=== PATIENT | female | born 1940 | race Caucasian/White ===

== ENCOUNTER 2017-03-08 07:57 | Day surgery (SDC) | payer MEDICARE ==
[2017-03-08] VITALS (13 sets, daily range): BP systolic 129–190; BP diastolic 52–74; PULSE 43–92; RESP 16–22; TEMP 97.8–98.7; O2SAT 93–98
[~2017-03-08] VITALS: Ht 160 cm; Wt 65.1 kg
[2017-03-08] MEDS ORDERED: IOHEXOL 350 MG/ML 100 ML BTL (for Cath Lab) OTHER ONE (07:58)
[2017-03-08] MEDS ORDERED: METO25TA3 PO (08:26)
[2017-03-08] MEDS ORDERED: ENAL10TA PO (08:26)
[2017-03-08] MEDS ORDERED: ASPI-516 CHEW (08:26)
[2017-03-08] MEDS ORDERED: ATOR10TA15 PO (08:26)
[2017-03-08 08:41] LABS: AUTOMATED NEUTROPHIL # 3.9 TH/MM3 (1.8-7.7); BASOPHIL % 0.7 % (0.0-2.0); EOSINOPHIL # 0.1 TH/MM3 (0-0.4); EOSINOPHIL % 1.1 % (0.0-4.0); HEMATOCRIT 43.2 % (35.0-46.0); HEMOGLOBIN 14.5 GM/DL (11.6-15.3); LYMPHOCYTE # 2.2 TH/MM3 (1.0-4.8); MEAN CELL VOLUME 97.6 FL (80.0-100.0); MEAN CORPUSCULAR HEMOGLOBIN 32.8 PG (27.0-34.0); MEAN CORPUSCULAR HGB CONC 33.6 % (32.0-36.0); MEAN PLATELET VOLUME 10.1 FL (7.0-11.0); MONO % 10.4 % (0.0-8.0); MONOCYTE # 0.7 TH/MM3 (0-0.9); NEUT % 55.8 % (16.0-70.0); PLATELET COUNT 193 TH/MM3 (150-450); RED BLOOD COUNT 4.42 MIL/MM3 (4.00-5.30)
[2017-03-08 08:53] LABS: PROTHROMBIN TIME - PATIENT 10.2 SEC (9.8-11.6)
[2017-03-08 09:05] LABS: BICARBONATE 29.1 MEQ/L (21.0-32.0); CALCIUM 9.7 MG/DL (8.5-10.1); CREATININE 0.68 MG/DL (0.50-1.00)
[2017-03-08] MEDS ORDERED: HEPARIN SODIUM - IV 10,000 UNITS/10 ML VIAL ONE (09:32)
[2017-03-08] MEDS ORDERED: MIDAZOLAM HCL 2 MG/2 ML VIAL ONE (09:32)
[2017-03-08] MEDS ORDERED: VERAPAMIL HCL 5 MG/2 ML VIAL ONE (09:32)
[2017-03-08] MEDS ORDERED: NITROGLYCERIN INJ 5 ML ONE (09:32)
[2017-03-08] MEDS ORDERED: HEPARIN-NS/PF INJ 1,000 ML ONE (09:34)
[2017-03-08] MEDS ORDERED: hydrALAZINE HCL 20 MG/ML VIAL ONE (10:36)
[2017-03-08] MEDS ORDERED: TICAGRELOR 90 MG TAB PO ONE (11:51)
[2017-03-08] MEDS ORDERED: SODIUM CHLOR 0.9% 1000 ML INJ 1,000 ML IV SCH (12:04)
--- NOTE | 2017-03-08 12:05 | CATHPROC ---
[employer] HIS Report Study Information Study Number Admission Scheduled Start Study Start [id number] Mar 08 2017 7:57AM 03/08/2017 Mar 08 2017 9:25AM [facility] Cardiac Catheterization Admit Source Facility Department Other [facility] - Clerk Operator Physician and Clinical Staff Initial MD Grewal, Nhan Maintainer Operator Lay Smith,RN Other cathlab, cathlab Recorder Braden James RCIS(BS) Scrub Lay Hylton,RT(R) Procedures Performed Procedure Location (Site) Vessel Name Coronary Angiograms LCA Left Coronary Coronary Angiograms RCA Right Coronary Drug Eluting Inflatio OM3 Mid CIRC L Heart Cath PTCA OM3 Mid CIRC Wire insertion Fem Art (right) Femoral Art Wire insertion OM1 Mid CIRC Wire insertion Radial (right) Radial Art. Equipment Time Cup Trimming Machine Operator Description Size Mfg Part Number Used/Scraped [id number] 10:44 [employer] WIRE, ASAWUT FIELDER XT 300CM 300CM Used *[id number] WIRE, BALANCE MIDDLEWEIGHT [id number] 10:19 [employer] 190CM Used 190CM *[id number] WIRE, BALANCE MIDDLEWEIGHT [id number] 10:52 [employer] 300CM Used 300CM *[id number] TRANSDUCER, TRUWAVE [id number] 09:25 CUADRA DOE * Used W/STOCKCOCK *[id number] [id number] *[id number] [id number] *[id number] WIRE, CHOICE PT 300CM PT EX. [id number] 11:14 Meditech 300CM Used SUPP *[id number] 09:25 Global [employer] PACK, CCL CUSTOM * Used *[id number] 09:25 Global [employer] SUPPORT, ARTERIAL ADULT [id number] *[id number] Used BALLOON, 1.25 X 15MM [id number] 10:45 MEDTRONIC 15MM Used SPRINTER LEGEND OTW *[id number] 10:27 [employer] BALLOON, 2.0 X 10MM EUPHORA 10MM Used *[id number] BALLOON, 2.25 X 8MM NC [id number] 10:36 [employer] 8MM Used EUPHORA *[id number] [id number] 10:30 [employer] STENT, 2.25 12MM STARR 2.25 12MM Used *[id number] 10:19 [employer]/AVE EBU 3.5 Z2 GUIDE CATHETER FR 6 Used *[id number] [id number] 10:32 [employer] 30 KYLE INDEFLATOR Used *6502465 BAND, RADIAL COMPRESSION TR [id number] 11:50 [employer] 24CM Used SHORT 24 *[id number] BAND, RADIAL COMPRESSION TR [id number] 11:50 [employer] 24CM Used SHORT 24 *[id number] [id number] 09:25 [employer] WIRE, EXCHANGE 260CM 3MMJ 260CM Used *[id number] 09:25 NAMIC MANIFOLD, 4 PORT * Used *[id number] 09:25 [employer]COMED OMNIPAQUE, 350 MG, 150ML 150ML [id number] Used [id number] 09:25 [facility] BLANKET,WARM AIR CCL * Used *[id number] SHEATH, FR6 TRANSRADIAL [id number] 09:25 [employer]29 FR 6 Used SLENDER 10CM *[id number] WIRE, RUNTHROUGH NS FLOPPY [id number] 10:59 [employer] 300CM Used .014 300CM *[id number] Equipment Model, Serial, Lot Number and Expiration Data Description Model Number Serial Number Lot Number Expiration Date BALLOON, 1.25 X 15MM SPRINTER [id number] 05-17-2019 LEGEND OTW BALLOON, 2.25 X 8MM NC [id number] 09-22-2018 EUPHORA BAND, RADIAL COMPRESSION TR [id number] 11-04-2019 SHORT 24 STENT, 2.25 12MM STARR [id number] 10-17-2018 WIRE, CHOICE PT 300CM PT EX. [id number] 11-30-2018 SUPP History: Current Medications Medication Dosage/Unit Route Frequency Last Date/Time Taken Statins (any) ASA History: Risk Factors Family History of Hypertension Dyslipidemia Previous MD Previous Heart Failure Premature CAD Yes Yes Yes No No Prior Valve Prior PCI Prior CABG Surgery No No No Cerebrovascular Peripheral Artery Chronic Lung On Dialysis Diabetes Disease Disease Disease No No Yes No No History: Symptoms/Diagnosis Selection Items WEEKS History: Stress Tests Stress or Imaging Studies Performed Yes Standard Exercise Stress Test No Stress Echo No Stress Test SPECT Stress Test SPECT Result Stress Test SPECT Ischemia Risk/Extent Yes Positive Intermediate Stress Test CMR No Cardiac CTA Coronary Calcium Score No No History: Other Current Smoker Packs a Day Years Used Pack Years Yes 1 30 30 Labs Hgb (g/dl) Hct (%) WBC (l/cumm) Platelets (thousands) 11.60-17.00 35.00-51.00 4.00-11.00 150.00-450.00 14.5 43.2 7 193 Glucose (mg/dl) BUN (mg/dl) Creatinine (mg/dl) BUN:Creatinine (1:x) 74.00-106.00 7.00-18.00 0.50-1.30 10.00-20.00 91 13 0.6 21.7 Na (meq/l) K (meq/l) Cl (meq/l) CO2 (mmol/L) 136.00-145.00 3.50-5.10 98.00-107.00 21.00-32.00 141 4.1 106 29.1 INR (PTT:PT) 0.90-1.10 1 CPK-MB (ng/ML) 0.50-3.60 Not Drawn Medication Medication Total Dose (Bolus/Oral) Medication Total Dosage/Unit 1% XYLOCAINE 3 mL BRILINTA 180 mg FENTANYL 25 mcg HEPARIN 5600 units HYDRALAZINE 10 mg RADIAL COCKTAIL 5 mL (Bolus) VERSED 0.5 mg Medications (Bolus/Oral) Medication Time Given Dosage/Unit Administered By Reason 1% XYLOCAINE 03/08/2017 10:07:10 AM 3 mL Nhan Grewal 3 mL 1% XYLOCAINE given in lab by Nhan Grewal in Right Radial via Subcutaneous. VERSED 03/08/2017 10:07:33 AM 0.5 mg Lay Smith 0.5 mg VERSED given in lab by Lay Smith, CIRO in Left Forearm via Peripheral IV. Ordered by Nhan Farooq FENTANYL 03/08/2017 10:07:45 AM 25 mcg Lay Smith 25 mcg FENTANYL given in lab by Lay Smith, CIRO in Left Forearm via Peripheral IV. Ordered by Nhan Huddleston Ntg 200mcg Verapamil 2.5mg Heparin RADIAL COCKTAIL 03/08/2017 10:07:53 AM 5 mL (Bolus) Nhan Grewal 2500U 5 mL (Bolus) RADIAL COCKTAIL given in lab by Nhan Grewal in Right Radial via Radial. Using [S olution Name]. Reason: Ntg 200mcg Verapamil 2.5mg Heparin 2600U. HEPARIN 03/08/2017 10:20:02 AM 5600 units Iain Smithon 5600 units HEPARIN given in lab by Lay Smith, CIRO in Left Forearm via Peripheral IV. Ordered by Nhan Bailey HYDRALAZINE 03/08/2017 10:42:58 AM 10 mg LuisLay 10 mg HYDRALAZINE given in lab by Lay Smith, CIRO in Left Forearm via Peripheral IV. Ordered by Nhan Clifton BRILINTA 03/08/2017 11:54:15 AM 180 mg AjIain quirozon 180 mg BRILINTA given in lab by Lay Smith RN via Oral. Ordered by Nhan Grewal Medication (Drip) Medication Time Given Dosage/Unit Concentration/Unit Diluent (ml) Solution IV Solutions 03/08/2017 9:25:32 AM 0 mL (IV) 500 NaCl .9 Patient arrived on IV Solutions given by cathlab, cathlab in Left Forearm via Peripheral IV. Pump/Dri p Flow = 20 ml/hr using NaCl .9. Ordered by Nhan Grewal Initial Case Assessment Cardiovascular HR Rhythm NIBP Chest Pain 50 JEREMIE 161/50 0 Edema Present Skin color Skin None Normal Warm Dry Circulatory - Right Pulses Dorsalis Pedis Femoral 2 2 Scale (0,1,2,3,4,d) Circulatory - Left Pulses Dorsalis Pedis Femoral d 2 Scale (0,1,2,3,4,d) Neurological State Oriented to time-place- Alert Moves all extremities person Respiration - General Respiration Rate SpO2 (%) (B/min) 15 95 Final Case Assessment Cardiovascular HR Rhythm NIBP Chest Pain 58 JEREMIE 147/47 0 Edema Present Skin color Skin None Normal Warm Dry Circulatory - Right Pulses Dorsalis Pedis Femoral 2 2 Scale (0,1,2,3,4,d) Circulatory - Left Pulses Dorsalis Pedis Femoral d 2 Scale (0,1,2,3,4,d) Neurological State Oriented to time-place- Alert Moves all extremities person Respiration - General Respiration Rate SpO2 (%) (B/min) 15 99 Chronological Log Time Study Chronological Log 9:25:22 Patient arrived via Bed. 9:25:23 Patient Name, D.O.B, / Armband Verified By R.N. 9:25:23 Consent signed by the physician and the patient and verified by the Clerk Operator staff. 9:25:24 Pre-op and post- op instructions given; patient acknowledges understanding of instructions. 9:25:24 Verbal Stimulation=2 Physical Stimulation=2 Airway=2 Respiration=2 TOTAL=8. (0=absent, 1=li mited, 2=present) 9:25:25 Presedation assessment performed by Clerk Operator RN. 9:25: Allens test performed on the right radial and ulnar artery. 9:25: Immediate Presedation assesment performed by physician. 9:25:28 Patient has been NPO for More than 6Hrs. 9:25:29 Skin Breakdown- NONE PER PATIENT 9:25:29 Patient Warmer Placed on the Table. 9:25:30 Alexander Prominences Protected 9:25:32 A # 20 IV was noted in the Forearm (left). Grade = 0 Patient arrived on IV Solutions given by cathlab, cathlab in Left Forearm via Peripheral IV. Pu mp/Drip Flow = 20 ml/hr 9:25:32 using NaCl .9. Ordered by Nhan Grewal 9:25:33 History and physical on the chart or being dictated. Assessment: Initial Case, HR=50 BPM, Rhythm=JEREMIE, XSWI=530/50 mmhg, Chest Pain=0, Edema=None, Color=Normal, Skin = Warm, Dry Right Pulses: Jim Ped=2, Femoral=2 9:32:25 Left Pulses: Jim Ped=d, Femoral=2 Neurological: State=Alert, Ox3, QUINTANILLA Respiration: Resp=15 B/min, SpO2=95 % 9:33:45 Reference ECG taken Vitals capture started with the following parameters, Patient=Adult, Interval=5 min, Initial Pr qrieon=141 mmHg, 9:33:56 Deflation Rate=5 mmHg, Cuff placed on Left Arm 9:35:22 HR=57 bpm, QACI=905/50 mmhg, SpO2=93.0 %, Resp=12 B/min, Pain=0, John=10, Benitez=2 9:39:42 HR=50 bpm, EEWJ=696/54 mmhg, SpO2=95.0 %, Resp=15 B/min, Pain=0, John=10, Benitez=2 9:41:04 Right Radial and groin(s) prepped with 2% chlorhexidine, and draped after a 3 min. waiting t ronnie. 9:43:34 MD arrived. 9:45:24 HR=48 bpm, XNYI=396/56 mmhg, SpO2=97.0 %, Resp=15 B/min, Pain=0, John=10, Benitez=2 9:45:48 Contrast Scanned 9:45:49 Immediate Presedation assesment performed by physician. 9:47:12 Pressure channel 1 zeroed. 9:49:44 HR=49 bpm, PYIG=629/54 mmhg, SpO2=95.0 %, Resp=14 B/min, Pain=0, John=10, Benitez=2 9:54:39 HR=58 bpm, JFSC=398/68 mmhg, SpO2=96.0 %, Resp=13 B/min, Pain=0, John=10, Benitez=2 10:00:25 HR=50 bpm, RIVV=141/57 mmhg, SpO2=95.0 %, Resp=15 B/min, Pain=0, John=10, Benitez=2 10:04:45 HR=41 bpm, HJVV=571/53 mmhg, SpO2=95.0 %, Resp=14 B/min, Pain=0, John=10, Benitez=2 Time Out. Correct patient, correct procedure, correct physician, power injector not loaded with contrast with surgical 10:05:40 team present. Time Out Concurred by MD and individual staff in procedure. 10:05:47 Case Start 10:05:47 Verbal Stimulation=2 Physical Stimulation=2 Airway=2 Respiration=2 TOTAL=8. (0=absent, 1=li mited, 2=present) 10:07:10 3 mL 1% XYLOCAINE given in lab by Nhan Grewal in Right Radial via Subcutaneous. 10:07:16 Access site was Right Radial Artery. A SHEATH, FR6 TRANSRADIAL SLENDER 10CM FR 6 was advanced into the Radial (right) using the Perc utaneous 10:07:22 technique. 10:07:33 0.5 mg VERSED given in lab by Lay Smith, RN in Left Forearm via Peripheral IV. Ordered by Nhan Grewal. 25 mcg FENTANYL given in lab by Lay Smith, CIRO in Left Forearm via Peripheral IV. Ordered b y Nhan Grewal 10:07:45 G. 5 mL (Bolus) RADIAL COCKTAIL given in lab by Nhan Grewal in Right Radial via Radial. Us ing [Solution Name]. 10:07:53 Reason: Ntg 200mcg Verapamil 2.5mg Heparin 2600U. A JR 4.0 INFINITI CATHETER FR 5 was advanced over a wire. OMNIPAQUE, 350 MG, 150ML 150ML was us ed for 10:08:11 injections. 10:09:47 HR=50 bpm, ZCRZ=357/53 mmhg, SpO2=94.0 %, Resp=13 B/min, Pain=0, John=10, Benitez=2 Recorded Pressure: LV, HR=64, Condition=Condition 1 10:10:39 (Left Ventricle) LV 159/6/12 Recorded Pressure: LV, Ao, HR=49, Condition=Condition 1 10:10:54 (Left Ventricle) LV 175/5/13, (Aorta) Ao 163/55/92 10:11:40 The RCA was injected and visualized at various angles. OMNIPAQUE, 350 MG, 150ML 150ML used . After removing the current catheter a JL 3.5 INFINITI CATHETER FR 5 was advanced over a WIRE, E XCHANGE 260CM 10:13:17 3MMJ 260CM. 10:14:41 HR=53 bpm, IUKN=805/60 mmhg, SpO2=92 %, Resp=8 B/min, Pain=0, John=10, Benitez=2 10:14:45 The LCA was injected and visualized at various angles. OMNIPAQUE, 350 MG, 150ML 150ML used . 5600 units HEPARIN given in lab by Lay Smith, RN in Left Forearm via Peripheral IV. Ordere d by Nhan Grewal 10:20:02 G. 10:20:30 HR=57 bpm, PLTJ=031/62 mmhg, SpO2=97.0 %, Resp=12 B/min, Pain=0, John=9, Benitez=2 After removing the current catheter a EBU 3.5 Z2 GUIDE CATHETER FR 6 was advanced over a WIRE, EXCHANGE 10:22:05 260CM 3MMJ 260CM. 10:25:27 HR=45 bpm, HXTN=791/61 mmhg, SpO2=98.0 %, Resp=12 B/min, Pain=0, John=9, Benitez=2 10:27:31 A WIRE, BALANCE MIDDLEWEIGHT 190CM 190CM was inserted via Fem Art (right). 10:30:17 Interventional wire has crossed the lesion A BALLOON, 2.0 X 10MM EUPHORA 10MM was inserted over WIRE, BALANCE MIDDLEWEIGHT 190CM 190CM via the 10:30:29 OM3 Mid. 10:30:30 HR=44 bpm, WDAY=738/54 mmhg, SpO2=98.0 %, Resp=13 B/min, Pain=0, John=9, Benitez=2 A BALLOON, 2.0 X 10MM EUPHORA 10MM over a WIRE, BALANCE MIDDLEWEIGHT 190CM 190CM in the OM3 Mid was 10:31:49 inflated using a 30 KYLE INDEFLATOR at 8 kyle for 15 sec. 10:32:25 Balloon Removed. 10:33:50 Activated Clotting Time Drawn A STENT, 2.25 12MM STARR 2.25 12MM was advanced through a EBU 3.5 Z2 GUIDE CATHETER FR 6 over a WIRE, 10:33:59 BALANCE MIDDLEWEIGHT 190CM 190CM. 10:34:48 HR=47 bpm, DQJW=738/61 mmhg, SpO2=99.0 %, Resp=14 B/min, Pain=0, John=9, Benitez=2 A STENT, 2.25 12MM STARR 2.25 12MM was deployed using a 30 KYLE INDEFLATOR at 12 atmospheres for 18 seconds 10:35:18 in the OM3 Mid. 10:35:51 Delivery device removed A BALLOON, 2.25 X 8MM NC EUPHORA 8MM was inserted over WIRE, BALANCE MIDDLEWEIGHT 190CM 190CM v ia the 10:37:03 OM3 Mid. A BALLOON, 2.25 X 8MM NC EUPHORA 8MM over a WIRE, BALANCE MIDDLEWEIGHT 190CM 190CM in the OM3 M id 10:37:58 was inflated using a 30 KYLE INDEFLATOR at 12 kyle for 10 sec. A BALLOON, 2.25 X 8MM NC EUPHORA 8MM over a WIRE, BALANCE MIDDLEWEIGHT 190CM 190CM in the OM3 M id 10:38:21 was inflated using a 30 KYLE INDEFLATOR at 16 kyle for 20 sec. 10:39:05 ACT (Normal Range 90-180) = 315 10:39:24 Balloon Removed. 10:40:26 HR=48 bpm, KDDL=251/61 mmhg, SpO2=98.0 %, Resp=10 B/min, Pain=0, John=9, Benitez=2 10 mg HYDRALAZINE given in lab by Lay Smith, RN in Left Forearm via Peripheral IV. Ordered by Uri, 10:42:58 Nhan Lyles 10:43:10 WIRE REPOSITIONED INTO OM1 10:43:58 Wire removed 10:45:37 HR=41 bpm, EEAA=592/42 mmhg, SpO2=99.0 %, Resp=12 B/min, Pain=0, John=9, Benitez=2 10:46:00 A WIRE, ASAHI FIELDER XT 300CM 300CM was inserted via OM1 Mid. 10:49:49 HR=60 bpm, IEPW=363/54 mmhg, BeV4=854.0 %, Resp=11 B/min, Pain=0, John=10, Benitez=2 10:52:37 The previous wire was exchanged for a WIRE, BALANCE MIDDLEWEIGHT 300CM 300CM. 10:55:29 HR=60 bpm, ONNE=273/48 mmhg, SpO2=99.0 %, Resp=13 B/min, Pain=0, John=10, Benitez=2 10:59:43 HR=43 bpm, OPIN=345/57 mmhg, SpO2=99.0 %, Resp=12 B/min, Pain=0, John=10, Benitez=2 11:00:56 The previous wire was exchanged for a WIRE, RUNTHROUGH NS FLOPPY .014 300CM 300CM. 11:02:44 Activated Clotting Time Drawn 11:04:42 Wire removed FOR RESHAPING 11:05:27 HR=54 bpm, CSSU=776/53 mmhg, SpU0=844.0 %, Resp=12 B/min, Pain=0, John=10, Benitez=2 11:06:03 A WIRE, RUNTHROUGH NS FLOPPY .014 300CM 300CM was inserted via Radial (right). 11:08:44 ACT (Normal Range 90-180) = 380 11:10:22 HR=37 bpm, TIVE=868/49 mmhg, SpO2=99.0 %, Resp=13 B/min, Pain=0, John=10, Benitez=2 11:14:46 HR=67 bpm, UEUT=362/47 mmhg, SpO2=99.0 %, Resp=14 B/min, Pain=0, John=10, Benitez=2 11:15:18 The previous wire was exchanged for a WIRE, CHOICE PT 300CM PT EX. SUPP 300CM. 11:15:47 Activated Clotting Time Drawn 11:19:21 Wire removed FOR RESHAPING 11:19:43 HR=43 bpm, QDZI=167/59 mmhg, ScJ5=414.0 %, Resp=13 B/min, Pain=0, John=10, Benitez=2 11:20:17 A WIRE, CHOICE PT 300CM PT EX. SUPP 300CM was inserted via Radial (right). 11:21:11 ACT (Normal Range 90-180) = 292 11:25:23 HR=49 bpm, NSUG=521/47 mmhg, SpO2=99.0 %, Resp=11 B/min, Pain=0, John=10, Benitez=2 11:28:44 Wire removed FOR SHAPING 11:29:29 A WIRE, CHOICE PT 300CM PT EX. SUPP 300CM was inserted via Radial (right). 11:29:43 HR=50 bpm, JXXJ=156/49 mmhg, SpO2=98.0 %, Resp=11 B/min, Pain=0, John=10, Benitez=2 11:34:44 HR=53 bpm, SQXD=382/51 mmhg, SpO2=99.0 %, Resp=9 B/min, Pain=0, John=10, Benitez=2 11:40:26 HR=51 bpm, NZRA=957/50 mmhg, SpO2=99.0 %, Resp=15 B/min, Pain=0, John=10, Benitez=2 11:40:59 Wire removed 11:42:47 A WIRE, RUNTHROUGH NS FLOPPY .014 300CM 300CM was inserted via Radial (right). 11:44:42 HR=70 bpm, EZED=052/66 mmhg, SpO2=98.0 %, Resp=21 B/min, Pain=0, John=10, Benitez=2 11:49:52 HR=48 bpm, AZWY=200/47 mmhg, SpO2=98.0 %, Resp=13 B/min, Pain=0, John=10, Benitez=2 11:49:57 Wire removed 11:50:37 A WIRE, EXCHANGE 260CM 3MMJ 260CM was inserted via Radial (right). 11:51:07 Catheter and wire removed without difficulty 11:51:33 Case End Assessment: Final Case, HR=58 BPM, Rhythm=JEREMIE, VAIM=782/47 mmhg, Chest Pain=0, Edema=None, Color=Normal, Skin = Warm, Dry Right Pulses: Jim Ped=2, Femoral=2 11:52:01 Left Pulses: Jim Ped=d, Femoral=2 Neurological: State=Alert, Ox3, QUINTANILLA Respiration: Resp=15 B/min, SpO2=99 % Radial Compression Device Used. ~VOLUME ML~ mLs of air placed in BAND, RADIAL COMPRESSION TR SH ORT 24 11:52:28 24CM. Affected hand ~O2 SATURATION~ % O2 saturation. 11:52:58 No case complications noted. 11:53:00 Cine recording checked. 11:53:07 Bedside Report will be given. 11:53:09 Implantable Device card placed in patient's chart. 11:53:13 Verbal Stimulation=2 Physical Stimulation=2 Airway=2 Respiration=2 TOTAL=8. (0=absent, 1=li mited, 2=present) 11:53:15 A Left Heart Cath was performed. 11:54:15 180 mg BRILINTA given in lab by Lay Smith RN via Oral. Ordered by Nhan Grewal 11:55:42 HR=66 bpm, PTAA=808/64 mmhg, SpO2=98.0 %, Resp=19 B/min, Pain=0, John=10, Benitez=2 11:56:30 CIC called. Spoke to Sindhu 11:59:52 HR=55 bpm, LBJM=849/51 mmhg, SpO2=99.0 %, Resp=15 B/min, Pain=0, John=10, Benitez=2 End Study - Contrast Media Used In Study Contrast Total Opened (mL) Total Used (mL) Total Wasted (mL) Omnipaque 180 180 0 End Study - Maximum Contrast Load Max Contrast Load (mL) 542.4 End Study - Radiation Exposure Fluoro Time (minutes) 47.1 End Study - Patient Disposition Complications Transferred To Interventional Outcome No Telemetry Bed a partial success
[2017-03-08] MEDS ORDERED: MORPHINE SULFATE 2 MG/ML INJ IV PUSH PRN (12:15)
[2017-03-08] MEDS ORDERED: oxyCODONE/ACETAMINOPHEN 5 MG/325 MG TAB PO PRN (12:15)
[2017-03-08] MEDS ORDERED: MISC INFORMATION XX ONE (12:15)
[2017-03-08] MEDS ORDERED: ONDANSETRON HCL 4 MG/2 ML VIAL IVP PRN (12:15)
[2017-03-08] MEDS ORDERED: oxyCODONE/ACETAMINOPHEN 10 MG/325 MG TAB PO PRN (12:15)
[2017-03-08] MEDS ORDERED: ACETAMINOPHEN 325 MG TAB PO PRN (12:15)
--- NOTE | 2017-03-08 12:21 | EKG ---
Date Performed: 03/08/2017 Time Performed: 08:34:56 PTAGE: 76 years EKG: Sinus bradycardia. Extensive ST-T changes may be due to myocardial ischemia Abnormal ECG NO PREVIOUS TRACING DOCTOR: Amando Boo Interpretating Date/Time 03/08/2017 12:19:51
[2017-03-08] MEDS ORDERED: PILL SPLITTER OTHER PRN (12:30)
[2017-03-08] MEDS ORDERED: FUROSEMIDE 40 MG/4 ML VIAL ONE (12:32)
[2017-03-08] MEDS ORDERED: FUROSEMIDE 40 MG/4 ML VIAL IV PUSH ONE (16:30)
[2017-03-08] MEDS ORDERED: ATORVASTATIN 10 MG TAB PO SCH (21:00)
[2017-03-08] MEDS ORDERED: TICAGRELOR 90 MG TAB PO SCH (21:00)
[2017-03-08] MEDS ORDERED: METOPROLOL TARTRATE 25 MG TAB PO SCH (21:00)
[2017-03-08] MEDS: ENALAPRIL MALEATE 10 MG TAB PO SCH (21:58)
--- NOTE | 2017-03-08 23:35 | MA ---
cc: NHAN CORTES DO DATE: March 08, 2017 PROCEDURE Left heart catheterization, coronary angiogram, moderate sedation 105 minutes, Waldemar drug-eluting stent (2.25 x 12) to OM3, unsuccessful TRACTOR ENGINE MECHANIC of OM1. PREPROCEDURE DIAGNOSIS Unstable angina / shortness of breath, abnormal stress test. POSTPROCEDURE DIAGNOSIS Coronary artery disease status post [place] drug-eluting stent (2.25 x 12), to OM3, TRACTOR ENGINE MECHANIC of OM1 with epem-lr-zapj collaterals. MEDICATIONS 1. Versed 0.5 mg. 2. Fentanyl 25 mcg. 3. Heparin 2600 units. 4. Verapamil 2.5 mg. 5. Nitro 200 mcg. 6. Heparin 5600 units. 7. Hydralazine 10 milligrams. 8. Brilinta 180 mg. CONTRAST USED 180 cc FLUOROSCOPY 47 minutes MODERATE SEDATION 105 minutes ESTIMATED BLOOD LOSS 10 cc PREPROCEDURAL SUMMARY Jaz Deras is a pleasant 76-year-old female who sees my partner, Dr. Watkins, in the office and underwent stress testing which showed lateral ischemia. Because of this she was recommended cardiac catheterization. The risks, benefits and alternatives were explained to her and she consented as such. She was brought to lab and prepped in the usual sterile fashion. Right radial artery was accessed using a modified Seldinger technique and placement of a 5/6 Wolof slender sheath. This was easily aspirated and flushed. The JR-4 was advanced over a J-wire to the ascending aorta and across the aortic valve for measurement of left ventricular pressure. This was pulled back across the aortic valve showing no significant gradient of aortic stenosis. JR-4 was used for selective angiography of the right coronary artery system. This was exchanged out for a JL-3.5 which was used for selective angiography of the left coronary artery system. Because of the significance of disease it was felt that the third obtuse marginal should be intervened on and consideration of the intervention on the first obtuse marginal. Please see below for interventional record. FINDINGS Left main: Overall short vessel with no significant disease. It bifurcates into an LAD and circumflex. LAD: Normal-size vessel with 40% disease in the mid portion with mild tortuosity distally. It gives off one major diagonal with no significant disease. Left circumflex: Normal size vessel with 40% disease in the midportion. First obtuse marginal is subtotally occluded in the proximal portion with some antegrade flow in the distal portion filled with nxec-ze-wsej collaterals. The second obtuse marginal has no significant disease. Third obtuse marginal with 99% lesion. RCA: Small nondominant vessel with an 80% lesion in the midportion. LVEDP 13. INTERVENTION Because of Ms. Deras's significant symptoms as well as abnormal stress test, I thought it was reasonable to intervene on her third obtuse marginal and possibly try to open up her first obtuse marginal. An EBU 3.5 guide was engaged in the left main. The patient was given heparin as an anticoagulant. BMW wire was advanced into the distal third obtuse marginal. A compliant balloon (2 x 10) was inflated over the lesion. This was exchanged out for an Waldemar drug-eluting stent (2.25 x 12) which was used for the lesion. This was postdilated with a 2.25 noncompliant balloon. Wire was then pulled back and attempted to engage the first obtuse marginal. At this time I unable to engage the first obtuse marginal and so this was exchanged out for multiple wires and an onuy-oun-bagk balloon including BMW, Fielder XT, a PT Choice and a run-through without success. At this time I felt that the distal portion is provided by lzmu-kn-mhkj collaterals and this should be treated medically. Guide was removed. The patient was given 180 mg of Brilinta. Radial band was placed over the arteriotomy site for hemostasis. The patient left the cath lab technologist cardiovascularly stable. IMPRESSION 1. Unstable angina / shortness of breath. 2. Abnormal stress test with lateral ischemia status post Waldemar drug-eluting stent (2.25 x 12) to the third obtuse marginal, residual subtotal occlusion of the first obtuse marginal with eigc-ic-hfhv collaterals. 3. Abnormal EKG. RECOMMENDATIONS 1. Ms. Deras underwent drug-eluting stent placement and so she will be recommended aspirin and Brilinta therapy. 2. She has had significant bradycardic episodes and so her beta-hunter will be held. 3. Postprocedure she was noted to have some shortness of breath and most likely pulmonary edema and so she will be diuresed as she received around a liter of fluids during that procedure. 4. She will be watched overnight and if stable in the morning discharged home for followup with Dr. Watkins. Thank you for allowing me to see Jaz Deras. If there are any questions, please do not hesitate to call. Nhan Cortes DO JORGEP/LEO /8:42 PM /10:51 PM
[2017-03-09] VITALS (12 sets, daily range): BP systolic 131–150; BP diastolic 54–69; PULSE 48–80; RESP 16–18; TEMP 98.3–98.5; O2SAT 92–97
[2017-03-09 05:24] LABS: AUTOMATED NEUTROPHIL # 4.9 TH/MM3 (1.8-7.7); BASOPHIL % 0.3 % (0.0-2.0); EOSINOPHIL % 0.3 % (0.0-4.0); HEMATOCRIT 40.5 % (35.0-46.0); HEMOGLOBIN 13.8 GM/DL (11.6-15.3); LYMPH % 23.1 % (9.0-44.0); LYMPHOCYTE # 1.8 TH/MM3 (1.0-4.8); MEAN CELL VOLUME 97.9 FL (80.0-100.0); MEAN CORPUSCULAR HEMOGLOBIN 33.5 PG (27.0-34.0); MEAN CORPUSCULAR HGB CONC 34.2 % (32.0-36.0); MONO % 12.2 % (0.0-8.0); MONOCYTE # 0.9 TH/MM3 (0-0.9); NEUT % 64.1 % (16.0-70.0); PLATELET COUNT 177 TH/MM3 (150-450); RED BLOOD COUNT 4.13 MIL/MM3 (4.00-5.30); RED CELL DISTRIBUTION WIDTH 13.8 % (11.6-17.2); WHITE BLOOD COUNT 7.7 TH/MM3 (4.0-11.0)
[2017-03-09 05:46] LABS: BICARBONATE 31.8 MEQ/L (21.0-32.0); CALCIUM 9.8 MG/DL (8.5-10.1); CREATININE 0.64 MG/DL (0.50-1.00)
[2017-03-09] MEDS ORDERED: ASPIRIN 81 MG CHEW TAB CHEW SCH (09:00)
[2017-03-09] MEDS ORDERED: CLOPIDOGREL 300 MG TAB PO ONE (10:15)
[2017-03-09] MEDS: ENALAPRIL MALEATE 10 MG TAB PO SCH (10:50)
--- NOTE | 2017-03-09 12:49 | PD.CARD.PN ---
Subjective Subjective Remarks Yesterday post-procedure SOB Pulmonary edema Now off oxygen and ambulating Feels well, no chest pain/SOB Objective Medications Current Medications Medications (Trade) Dose Ordered Sig/Dangelo Route Start Time Stop Time Status Last Admin (Aspirin Chew) 81 mg DAILY CHEW 03/09/17 09:00 03/09/17 10:50 (Lipitor) 10 mg HS PO 03/08/17 21:00 03/08/17 21:59 (Vasotec) 10 mg BID PO 03/08/17 21:00 03/09/17 10:50 (Tylenol) 325 mg Q4H PRN PO 03/08/17 12:15 (Percocet 5-325 Mg) 1 tab Q4H PRN PO 03/08/17 12:15 (Percocet 10-325 Mg) 1 tab Q4H PRN PO 03/08/17 12:15 (Morphine Inj) 2 mg Q30M PRN IV PUSH 03/08/17 12:15 (Zofran Inj) 4 mg Q6H PRN IVP 03/08/17 12:15 (Pill Splitter) 1 ea UNSCH PRN OTHER 03/08/17 12:30 (Plavix) 75 mg DAILY PO 03/10/17 09:00 Vital Signs / I&O Vital Signs Date Time Temp Pulse Resp B/P (MAP) Pulse Ox O2 Delivery O2 Flow Rate FiO2 03/09/17 11:00 60 03/09/17 11:00 57 18 148/54 (85) 94 03/09/17 10:00 62 03/09/17 09:00 70 03/09/17 08:00 55 03/09/17 07:00 48 03/09/17 07:00 98.5 55 16 131/56 (81) 92 03/09/17 06:01 49 03/09/17 05:17 52 03/09/17 04:24 55 03/09/17 03:30 80 03/09/17 03:30 98.3 57 18 150/69 (96) 97 03/09/17 00:07 51 03/08/17 23:10 98.1 78 19 137/74 (95) 96 03/08/17 23:10 79 03/08/17 22:00 85 03/08/17 21:00 57 03/08/17 20:00 57 03/08/17 19:30 70 03/08/17 19:30 98.5 66 18 129/52 (77) 94 03/08/17 18:00 56 03/08/17 17:00 55 03/08/17 16:00 92 03/08/17 16:00 98.1 60 22 145/64 (91) 98 03/08/17 15:00 51 03/08/17 14:00 45 03/08/17 13:00 59 I/O 03/08/17 03/08/17 03/08/17 03/09/17 03/09/17 03/09/17 07:00 15:00 23:00 07:00 15:00 23:00 Intake Total 840 ml 480 ml Output Total 350 ml Balance 490 ml 480 ml Intake Oral 240 ml 480 ml IV Total 600 ml Output Urine Total 350 ml # Voids 2 # Bowel Movements 0 Physical Exam GENERAL: NAD, AAOx3 SKIN: Warm and dry. HEAD: Atraumatic. Normocephalic. EYES: Pupils equal and round. No scleral icterus. No injection or drainage. ENT: No nasal bleeding or discharge. Mucous membranes pink and moist. NECK: Trachea midline. No JVD. CARDIOVASCULAR: Regular rate and rhythm. RESPIRATORY: No accessory muscle use. Clear to auscultation. Breath sounds equal bilaterally. GASTROINTESTINAL: Abdomen soft, non-tender, nondistended. Hepatic and splenic margins not palpable. MUSCULOSKELETAL: Extremities without clubbing, cyanosis, or edema. No obvious deformities. Right radial, no hematoma, neurovascularly intact distally NEUROLOGICAL: Awake and alert. No obvious cranial nerve deficits. Motor grossly within normal limits. Five out of 5 muscle strength in the arms and legs. Normal speech. PSYCHIATRIC: Appropriate mood and affect; insight and judgment normal. Laboratory Laboratory Tests Test 03/09/17 04:13 White Blood Count 7.7 TH/MM3 Red Blood Count 4.13 MIL/MM3 Hemoglobin 13.8 GM/DL Hematocrit 40.5 % Mean Corpuscular Volume 97.9 FL Mean Corpuscular Hemoglobin 33.5 PG Mean Corpuscular Hemoglobin Concent 34.2 % Red Cell Distribution Width 13.8 % Platelet Count 177 TH/MM3 Mean Platelet Volume 10.0 FL Neutrophils (%) (Auto) 64.1 % Lymphocytes (%) (Auto) 23.1 % Monocytes (%) (Auto) 12.2 % Eosinophils (%) (Auto) 0.3 % Basophils (%) (Auto) 0.3 % Neutrophils # (Auto) 4.9 TH/MM3 Lymphocytes # (Auto) 1.8 TH/MM3 Monocytes # (Auto) 0.9 TH/MM3 Eosinophils # (Auto) 0.0 TH/MM3 Basophils # (Auto) 0.0 TH/MM3 CBC Comment DIFF FINAL Differential Comment Blood Urea Nitrogen 18 MG/DL Creatinine 0.64 MG/DL Random Glucose 93 MG/DL Calcium Level 9.8 MG/DL Sodium Level 143 MEQ/L Potassium Level 3.9 MEQ/L Chloride Level 105 MEQ/L Carbon Dioxide Level 31.8 MEQ/L Anion Gap 6 MEQ/L Estimat Glomerular Filtration Rate 90 ML/MIN Assessment and Plan Problem List: (1) Unstable angina ICD Codes: I20.0 - Unstable angina (2) CAD (coronary artery disease) ICD Codes: I25.10 - Atherosclerotic heart disease of [place] coronary artery without angina pectoris Assessment and Plan 1) Pulmonary edema yesterday post-cath Diuresed well Off oxygen 2) CAD/USA s/p DANYA to OM3 Con't ASA Changed to Plavix due to sinus arrhythmia/pauses 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 Will stop metoprolol/BB Changed Brilinta to Plavix due to possible cause of AV block/bradycardia/ pauses Consider outpatient rhythm analysis to further evaluate 4) Plan to discharge Follow up with Dr. Watkins >45 mins spent on discharge Nhan Grewal DO Mar 09, 2017 12:49
[2017-03-09] MEDS ORDERED: PLAV75TA29 PO (13:10)
[2017-03-10] MEDS ORDERED: CLOPIDOGREL 75 MG TAB PO SCH (09:00)
--- NOTE | 2017-03-11 00:03 | EKG ---
Date Performed: 03/08/2017 Time Performed: 12:43:08 PTAGE: 76 years EKG: Sinus arrhythmia with PVC(s) Ant/septal and lateral ST-T changes are nonspecific Abnormal E CG PREVIOUS TRACING : 03/08/2017 08.34 DOCTOR: Phi Rodríguez Interpretating Date/Time 03/11/2017 00:02:40
== END 2017-03-09 14:14 | disposition home or self-care (01) ==
LOC: HCAT 07:57 → HDIC 07:57 → HCAT 12:29 → HCIS 12:29 → HDIC 12:29 → UNDOADMOB 12:31 → HCIS 12:31 → HCAT 03-09 14:14
PROVIDERS: ATTEND Nuclear Medicine Nuclear Cardiology
DX: I25.110 Atherosclerotic heart disease of native coronary artery with unstable angina pectoris (principal); J81.1 Chronic pulmonary edema; I10 Essential (primary) hypertension; I70.219 Atherosclerosis of native arteries of extremities with intermittent claudication, unspecified extremity; E78.5 Hyperlipidemia, unspecified; F17.200 Nicotine dependence, unspecified, uncomplicated; Z79.02 Long term (current) use of antithrombotics/antiplatelets; Z79.82 Long term (current) use of aspirin
CPT/HCPCS: 80048; 85002; 85025; 85610; 85730; 92928; 93005; 93458; 99152; 99153; C1725; C1769; C1874; C1887; C1893; J0360; J1644; J2250; J3010; J1940; Q9967